=== PATIENT | female | born 1995 | race Two or more races ===

== ENCOUNTER 2016-09-23 12:30 | Emergency (ER) | payer SELFPAY ==
[2016-09-23 12:45] VITALS: TEMP 98.4; BMI 22.6
[2016-09-23] MEDS ORDERED: ONDANSETRON HCL 4 MG ODT TAB PO ONE (12:55)
--- NOTE | 2016-09-23 12:57 | EDPRACDOC ---
- General Information Chief Complaint: Abdominal Pain Stated Complaint: UPPER ABD PAIN Time Seen by Provider: 09/23/16 12:47 Mode Of Arrival: Car Home Medications: Home Medications Ondansetron HCl [Zofran] 4 mg PO Q8H PRN #15 tab 09/23/16 Ranitidine [Zantac] 150 mg PO BID #14 tablet 09/23/16 Allergies/Adverse Reactions: Allergies Allergy/AdvReac Type Severity Reaction Status Date / Time No Known Allergies Allergy Verified 09/23/16 12:45 - History of Present Illness Onset: 1 MONTH HPI: Pt c/o epigastric pain x month with nausea. Denies fever, cough, congestion, cp , sob, changes in bowel or bladder. Pt states she ate a sausage burrito for breakfast and pain worse afterwards with 1 episode of vomiting Pain Location: Reports: Epigastric, RUQ Pain Context: Reports: Spontaneous Pain Severity: Moderate Pain Quality: Reports: Aching, Sharp Pain Radiation: Reports: No Radiation Last Menstrual Period: IMPLANT : No Blood Type: B+ Adult Abdominal History: Denies: Urolithiasis, Bowel Obstruction Female Abdominal History: Denies: UTI, Ectopic, PID, Urolithiasis Modifying Factors: improves with: Food Female Associated Signs & Symptoms: Reports: Nausea, Vomiting Oral Intake: Normal Urinary Output: Normal ED Past Medical History - History Reviewed Yes Nurses notes reviewed and agree except as marked - Patient Medical History GI/ History: Denies: Urinary Tract Infection Systemic History: Denies: Cancer, Anemia, Lupus Surgical History: Reports: Other () - Family Medical History Denies: Hypertension, Diabetes, Cancer, Stroke, Cardiac Disorders - Social Medical History Smoking Status: Light tobacco smoker (less than 5/day) ETOH: None Substance Abuse: None EDM Review of Systems - Review of Systems Constitutional: No Symptoms Reported. negative: Fever, Chills, Weakness, Fatigue, Loss of Appetite Ears: No Symptoms Reported. negative: Pain, Hearing Loss, Drainage, Ear Pulling Throat: No Symptoms Reported. negative: Pain, Swelling Nose: No Symptoms Reported. negative: Congestion, Bleeding, Discharge, Injection, Swelling, Deformity, Ecchymosis, Tender, Abrasion, Laceration Mouth: No Symptoms Reported. negative: Pain, Drooling Respiratory: No Symptoms Reported. negative: Cough, Brassy Cough, Barky Cough, Shortness of Breath, Wheezing, Hemoptysis Cardiovascular: No Symptoms Reported. negative: Chest Pain, Palpitations, Syncope, Edema, Orthopnea, PND, Skin Mottling, Cyanosis Gastrointestinal: Nausea, Pain, Vomiting Genitourinary: No Symptoms Reported. negative: Dysuria, Hematuria, Frequency, Discharge, Bleeding, Testicular Pain, Neurological: No Symptoms Reported. negative: Headache, Dizziness, Seizure, Numbness, Weakness, Speech Difficulty, Gait Difficulty Musculoskeletal: No Symptoms Reported. negative: Neck, Chestwall, Ribs, Back, Shoulder, Arm, Elbow, Forearm, Wrist, Hand, Pelvis, Hip, Femur, Knee, Leg, Ankle , Foot Integumentary: No Symptoms Reported. negative: Itching, Rash, Bruising, Wound Allergic/Immunologic: No Symptoms Reported. negative: Hives, Itching Hematologic: No Symptoms Reported. negative: Lymphadenopathy, Easy Bruising, Easy Bleeding Psychiatric: No Symptoms Reported. negative: Anxiety, Depression, Hallucinations, Insomnia, Suicidal - Physical Exam Constitutional: Alert Oriented to: Time, Person, Place Last recorded Vital Signs: Last Vital Signs Temp 98.4 F 09/23/16 12:42 Pulse 95 09/23/16 12:42 Resp 18 09/23/16 12:42 BP 116/57 L 09/23/16 12:42 Pulse Ox 98 09/23/16 12:42 Oxygen Pulse Oxygen Saturation 98 O2 Device Oxygen Flow Rate Fraction of Inspired Oxygen ( FIO2) - HEENT Head: Normal ( normocephalic) Eye Exam: Normal (PERRL, EOMI, Sclera white) Oropharynx: Normal (Pharynx:Moist without exudate,Gums-no swelling) Tympanic Membrane: Normal ENT EAC: Normal Nose: No Symptoms Reported (septum midline) Neck: Normal (FROM, trachea at midline) - Respiratory/Cardiovascular Respiratory: Normal - CTA (BBS clear to auscultation without adventitious sounds ) Cardiovascular: Normal (RRR without murmur, gallop or rub) - GI Auscultation: Normal (NABS) Palpation: Normal (Soft,No rebound or guarding, non distended) Tenderness: Mild, RUQ, Epigastric Pacheco's Sign: Positive - Musculoskeletal Back: Normal (Non-Tender) Extremities: Normal (Normal tone, Pulses 2+ No cyanosis or edema, FROM) - Integumentary Skin: Normal, Warm, Dry Lymphatics: Normal (no adenopathy) - Neurologic Memory Impaired: Normal Motor Function: Normal (Normal tone, Pulses 2+ No cyanosis or edema, FROM) Mood Description: Normal Perception: Normal - Differential Diagnosis Cholecystitis, Cholelithiasis, Colic, Gastroenteritis, PUD - Results 09/23/16 12:57 09/23/16 12:57 WBC 5.1 xk/uL (3.8-10.8) 09/23/16 12:57 RBC 4.53 xM/uL (4.20-5.40) 09/23/16 12:57 Hgb 13.0 g/dL (12.0-16.0) 09/23/16 12:57 Hct 38.7 % (36-47) 09/23/16 12:57 MCV 86 fL (81-99) 09/23/16 12:57 MCH 28.6 pg (27-32) 09/23/16 12:57 MCHC 33.5 g/dl (33-36) 09/23/16 12:57 RDW 13.6 % (11.5-14.5) 09/23/16 12:57 Plt Count 214 xk/uL (130-400) 09/23/16 12:57 MPV 8.8 fL (7.4-10.4) 09/23/16 12:57 Neut % (Auto) 55.2 % (45-76) 09/23/16 12:57 Lymph % (Auto) 35.7 % (17-44) 09/23/16 12:57 [place] % (Auto) 5.7 % (3-10) 09/23/16 12:57 Eos % (Auto) 2.7 % (0-5) 09/23/16 12:57 Baso % (Auto) 0.7 % (0-2) 09/23/16 12:57 Absolute Neuts (auto) 2.81 xk/uL (1.7-8.2) 09/23/16 12:57 Absolute Lymphs (auto) 1.79 xk/uL (0.65-4.75) 09/23/16 12:57 Sodium 142 mEq/L (137-146) 09/23/16 12:57 Potassium 4.0 mEq/L (3.5-5.1) 09/23/16 12:57 Chloride 107 mEq/L (98-107) 09/23/16 12:57 Carbon Dioxide 24 mMOL/L (22-33) 09/23/16 12:57 Anion Gap 15 mEq/L (8-16) 09/23/16 12:57 BUN 15 MG/DL (7-17) 09/23/16 12:57 Creatinine 0.60 MG/DL (0.52-1.04) 09/23/16 12:57 Estimated GFR (MDRD) > 60 mL/min (>=60) 09/23/16 12:57 Glucose 80 mg/dL (70-99) 09/23/16 12:57 Calculated Osmolality 273 MOs/Kg (270-290) 09/23/16 12:57 Calcium 9.2 MG/DL (8.4-10.2) 09/23/16 12:57 Total Bilirubin 0.2 MG/DL (0.2-1.3) 09/23/16 12:57 AST 26 IU/L (14-36) 09/23/16 12:57 ALT 41 IU/L (9-52) 09/23/16 12:57 Alkaline Phosphatase 85 IU/L (45-300) 09/23/16 12:57 Total Protein 7.5 G/DL (6.3-8.2) 09/23/16 12:57 Albumin 4.5 G/DL (3.5-5.0) 09/23/16 12:57 Lipase 77 U/L (23-300) 09/23/16 12:57 Urine Color Yellow 09/23/16 12:52 Urine Clarity Cldy 09/23/16 12:52 Urine pH 5.0 (5.0-8.0) 09/23/16 12:52 Ur Specific [place] 1.030 (1.003-1.035) 09/23/16 12:52 Urine Protein Neg (NEG/TRACE) 09/23/16 12:52 Urine Glucose (UA) Neg (NEGATIVE) 09/23/16 12:52 Urine Ketones Neg (NEGATIVE) 09/23/16 12:52 Urine Occult Blood Neg (NEG/TRACE) 09/23/16 12:52 Urine Nitrite Neg (NEGATIVE) 09/23/16 12:52 Urine Bilirubin Neg (NEGATIVE) 09/23/16 12:52 Urine Urobilinogen <2.0 MG/DL (0-1) 09/23/16 12:52 Ur Leukocyte Esterase Neg (NEGATIVE) 09/23/16 12:52 Urine RBC 0-2 (0-5) 09/23/16 12:52 Urine WBC 0-2 (0-5) 09/23/16 12:52 Ur Epithelial Cells 3+ 09/23/16 12:52 Urine Bacteria Few (NEG/FEW) 09/23/16 12:52 Urine Mucus Mod (NEG/OCC) H 09/23/16 12:52 Urine Test Neg (NEGATIVE) 09/23/16 12:52 Lab Results 09/23/16 09/23/16 09/23/16 12:57 12:57 12:52 WBC 5.1 RBC 4.53 Hgb 13.0 Hct 38.7 MCV 86 MCH 28.6 MCHC 33.5 RDW 13.6 Plt Count 214 MPV 8.8 Neut % (Auto) 55.2 Lymph % (Auto) 35.7 [place] % (Auto) 5.7 Eos % (Auto) 2.7 Baso % (Auto) 0.7 Absolute Neuts (auto) 2.81 Absolute Lymphs (auto) 1.79 Sodium 142 Potassium 4.0 Chloride 107 Carbon Dioxide 24 Anion Gap 15 BUN 15 Creatinine 0.60 Estimated GFR (MDRD) > 60 Glucose 80 Calculated Osmolality 273 Calcium 9.2 Total Bilirubin 0.2 AST 26 ALT 41 Alkaline Phosphatase 85 Total Protein 7.5 Albumin 4.5 Lipase 77 Urine Color Yellow Urine Clarity Cldy Urine pH 5.0 Ur Specific [place] 1.030 Urine Protein Neg Urine Glucose (UA) Neg Urine Ketones Neg Urine Occult Blood Neg Urine Nitrite Neg Urine Bilirubin Neg Urine Urobilinogen <2.0 Ur Leukocyte Esterase Neg Urine RBC 0-2 Urine WBC 0-2 Ur Epithelial Cells 3+ Urine Bacteria Few Urine Mucus Mod H Urine Test 09/23/16 12:52 WBC RBC Hgb Hct MCV MCH MCHC RDW Plt Count MPV Neut % (Auto) Lymph % (Auto) [place] % (Auto) Eos % (Auto) Baso % (Auto) Absolute Neuts (auto) Absolute Lymphs (auto) Sodium Potassium Chloride Carbon Dioxide Anion Gap BUN Creatinine Estimated GFR (MDRD) Glucose Calculated Osmolality Calcium Total Bilirubin AST ALT Alkaline Phosphatase Total Protein Albumin Lipase Urine Color Urine Clarity Urine pH Ur Specific [place] Urine Protein Urine Glucose (UA) Urine Ketones Urine Occult Blood Urine Nitrite Urine Bilirubin Urine Urobilinogen Ur Leukocyte Esterase Urine RBC Urine WBC Ur Epithelial Cells Urine Bacteria Urine Mucus Urine Test Neg - Diagnostic Imaging Abdomen Image interpreted by: Radiologist 09/23/16 13:52 IMPRESSION: Normal right upper quadrant abdominal sonogram, with no cholelithiasis. Decision Time to Discharge: 13:52 - Departure Disposition: Home Condition: Good Final Diagnosis: Epigastric abdominal pain Instructions: Non-pharmacological Pain Management Therapies for Adults (GEN), Gastritis (ED), Acute Abdominal Pain (ED) Education/Counseling Given To: Patient Education/Counseling Given Regarding: Diagnosis, Treatment, Follow Up Referrals: None,No Provider [Primary Care Provider] - One Week Sharad Balderas MD [Staff Physician] - One Week Prescriptions: New Ondansetron HCl [Zofran] 4 mg PO Q8H PRN #15 tab PRN Reason: Nausea/Vomiting Ranitidine [Zantac] 150 mg PO BID #14 tablet Additional Instructions: Avoid spicy, greasy, fatty foods. Return for worse or different symptoms.
[2016-09-23 13:05] LABS: AUTOMATED BASOPHIL 0.7 % (0-2); AUTOMATED EOSINOPHIL 2.7 % (0-5); AUTOMATED LYMPH 35.7 % (17-44); AUTOMATED MONOCYTE 5.7 % (3-10); AUTOMATED NEUTROPHIL 55.2 % (45-76); MPV 8.8 fL (7.4-10.4)
[2016-09-23 13:15] LABS: BLOOD UREA NITROGEN 15 MG/DL (7-17); CALCIUM 9.2 MG/DL (8.4-10.2); CALCULATED OSMOLALITY 273 MOs/Kg (270-290); CHLORIDE 107 mEq/L (98-107); GLUCOSE 80 mg/dL (70-99); SODIUM LEVEL 142 mEq/L (137-146); TOTAL PROTEIN 7.5 G/DL (6.3-8.2)
[2016-09-23 13:16] LABS: LEUKOCYTES/URINE NEG (NEGATIVE); NITRITE/URINE NEG (NEGATIVE); RBC/URINE 0-2 (0-5); URINE OCCULT BLOOD NEG (NEG/TRACE); WBC/URINE 0-2 (0-5)
--- NOTE | 2016-09-23 13:51 | DIRPT ---
CLINICAL DATA: Right upper quadrant abdominal pain, nausea and vomiting. EXAM: US ABDOMEN LIMITED - RIGHT UPPER QUADRANT COMPARISON: 11/20/2015 CT abdomen/ pelvis. FINDINGS: Gallbladder: No gallstones or wall thickening visualized. No sonographic Pacheco sign noted by bull gang worker. Common bile duct: Diameter: 2 mm Liver: No focal lesion identified. Within normal limits in parenchymal echogenicity. IMPRESSION: Normal right upper quadrant abdominal sonogram, with no cholelithiasis. Electronically Signed By: Charlie Lopes M.D. On: 09/23/2016 13:48
[2016-09-23 14:32] VITALS: BP 100/61; PULSE 86
== END 2016-09-23 14:00 | disposition home or self-care (01) ==
LOC: ED 12:30 → EDMC 14:00
DX: R10.13 Epigastric pain (principal)
CPT/HCPCS: 36415; 76705; 80053; 81001; 81025; 83690; 85025; 99283; J3490